=== PATIENT | female | born 1975 | race Two or more races ===

== ENCOUNTER 2023-05-04 19:02 | Emergency (ER) | payer OTHER ==
[~2023-05-04] VITALS: Ht 180.3 cm; Wt 76.2 kg
[~2023-05-04 19:02] MED LIST: MEDROL4 MG PO; PREDNISONE; TRAMADOL HCL-AP1 TAB PO; [UNRECOGNIZED DRUG - OTHER]
[2023-05-04] MEDS ORDERED: ZOLOFT25 MG PO (19:28)
[2023-05-04] MEDS ORDERED: ZESTRIL2.5 MG PO (19:28)
== END 2023-05-04 21:15 | disposition home or self-care (01) ==
LOC: ER 19:02
DX: R51.9 Headache, unspecified (principal)

== ENCOUNTER 2025-01-13 14:09 | Emergency (ER) | payer OTHER ==
[~2025-01-13] VITALS: Ht 149.9 cm; Wt 76.7 kg
[~2025-01-13 14:09] MED LIST changes: +ZESTRIL2.5 MG PO; +ZOLOFT25 MG PO
[2025-01-13] MEDS ORDERED: PEPCID AC20 MG PO (16:38)
[2025-01-13] MEDS ORDERED: MEDROLPACK PO (16:38)
[2025-01-13] MEDS ORDERED: AMOX1TAB5 PO (16:38)
[2025-01-13] MEDS ORDERED: SINGULAIR10 MG PO (16:38)
[2025-01-13] MEDS ORDERED: BUTALB-ACETAMI1 EAC2 PO (16:39)
== END 2025-01-13 17:43 | disposition home or self-care (01) ==
LOC: ER 14:12
DX: R51.9 Headache, unspecified (principal); J02.9 Acute pharyngitis, unspecified; I10 Essential (primary) hypertension; Z88.5 Allergy status to narcotic agent; Z88.6 Allergy status to analgesic agent

== ENCOUNTER 2025-01-19 17:24 | Emergency (ER) | payer OTHER ==
[~2025-01-19] VITALS: Ht 149.9 cm; Wt 76.7 kg
[~2025-01-19 17:24] MED LIST changes: +AMOX1TAB5 PO; +BUTALB-ACETAMI1 EAC2 PO; +MEDROLPACK PO; +PEPCID AC20 MG PO; +SINGULAIR10 MG PO
[2025-01-19] MEDS ORDERED: CETIRIZINE HCL 5 MG/5 ML ML PO ONE (19:00)
[2025-01-19 19:22] LABS: HEMATOCRIT 36.5 % (36.0-45.00); HEMOGLOBIN 12.5 g/dL (12.0-15.00); MEAN CELL VOLUME 82.8 fL (80.00-100.00); MEAN CORPUSCULAR HEMOGLOBIN 28.4 pg (27.00-32.0); MEAN CORPUSCULAR HGB CONC 34.3 g/dl (32.0-36.0); PLATELET COUNT 291 K/uL (150-450); RED CELL DISTRIBUTION WIDTH 13.8 % (11.5-14.5)
[2025-01-19] MEDS ORDERED: FLONASE16 GM NASAL (21:13)
[2025-01-19] MEDS ORDERED: SALINE NASAL SP44 ML NASAL (21:13)
== END 2025-01-19 22:08 ==
LOC: ER 17:26
PROVIDERS: Preventive Medicine Public Health & General Preventive Medicine
DX: J32.9 Chronic sinusitis, unspecified (principal); R53.81 Other malaise; Z20.822 Contact with and (suspected) exposure to COVID-19; Z88.8 Allergy status to other drugs, medicaments and biological substances; I10 Essential (primary) hypertension

== ENCOUNTER 2025-01-24 14:52 | Emergency (ER) | payer OTHER ==
[~2025-01-24] VITALS: Ht 149.9 cm; Wt 72.1 kg
[~2025-01-24 14:52] MED LIST changes: +FLONASE16 GM NASAL; +SALINE NASAL SP44 ML NASAL
[2025-01-24] MEDS ORDERED: VISTARIL50 MG/ML IM (15:56)
== END 2025-01-24 17:31 | disposition home or self-care (01) ==
LOC: ER 14:55
DX: R09.81 Nasal congestion (principal); Z88.8 Allergy status to other drugs, medicaments and biological substances

== ENCOUNTER 2025-04-19 16:15 | Emergency (ER) | payer OTHER ==
[~2025-04-19] VITALS: Ht 149.9 cm; Wt 78.0 kg
[~2025-04-19 16:15] MED LIST changes: +VISTARIL50 MG/ML IM
[2025-04-19] MEDS ORDERED: LISINOPRIL10 MG PO (17:10)
[2025-04-19 18:18] LABS: BASO % 0.7 % (0.1-1.2); EOS # 0.06 (0.04-0.54); EOS % 1.1 % (0.7-7.0); HEMOGLOBIN 11.9 g/dL (11.2-15.7); LYMPH # 2.46 (1.18-3.74); LYMPH % 45.5 % (19.3-53.1); MEAN CORPUSCULAR HEMOGLOBIN 27.3 pg (25.6-32.2); MONO # 0.39 (0.24-0.82); MONO % 7.2 % (4.7-12.5); NEUT # 2.45 (1.56-6.13); NEUT % 45.3 % (34.0-71.1); PLATELET COUNT 244 K/uL (163-369); RED BLOOD COUNT 4.36 M/uL (3.93-5.22); RED CELL DISTRIBUTION WIDTH 12.6 % (11.6-14.4)
[2025-04-19 18:43] LABS: ALBUMIN 3.9 gm/dL (3.4-5.0); BILIRUBIN TOTAL 0.24 mg/dL (0.3-1.2); CALCIUM 8.8 mg/dL (8.5-10.1); CREATININE SERUM 0.65 mg/dL (0.55-1.02); GFR 97.7; GLOBULINA 4.2 G/DL (2.4-3.5); POTASSIUM 4.07 mEq/L (3.5-5.1); TOTAL PROTEIN 8.1 gm/dL (6.4-8.2)
[2025-04-19 18:45] LABS: COVID-19 AG NEGATIVE (NEGATIVE); INFLUENZA A AG NEGATIVE (NEGATIVE); INFLUENZA B AG NEGATIVE (NEGATIVE)
[2025-04-19] MEDS ORDERED: NEO-POLYMYXYIN-10 ML OPHT (19:42)
== END 2025-04-19 20:14 | disposition home or self-care (01) ==
LOC: ER 16:43
PROVIDERS: General Practice
DX: H66.93 Otitis media, unspecified, bilateral (principal); Z20.822 Contact with and (suspected) exposure to COVID-19; Z88.8 Allergy status to other drugs, medicaments and biological substances

== ENCOUNTER 2025-06-14 11:11 | Emergency (ER) | payer OTHER ==
[~2025-06-14] VITALS: Ht 149.9 cm; Wt 81.6 kg
[~2025-06-14 11:11] MED LIST changes: +LISINOPRIL10 MG PO; +NEO-POLYMYXYIN-10 ML OPHT
[2025-06-14] MEDS ORDERED: ORPHENADRINE CITRATE 30 MG/ML AMPUL IM ONE (12:15)
[2025-06-14] MEDS ORDERED: ORPHENADRINE CITRATE 30 MG/ML AMPUL ONE (12:19)
[2025-06-14] MEDS ORDERED: DEXAMETHASONE SODIUM PHOSPHATE 4 MG/ML VIAL ONE (12:20)
[2025-06-14] MEDS ORDERED: ACETAMINOPHEN 500 MG GEL..CAP PO ONE ×2 (12:20→12:30)
[2025-06-14] MEDS ORDERED: DEXAMETHASONE SODIUM PHOSPHATE 4 MG/ML VIAL IM ONE (12:30)
== END 2025-06-14 14:27 | disposition home or self-care (01) ==
LOC: ER 11:11
DX: G43.909 Migraine, unspecified, not intractable, without status migrainosus (principal); M62.838 Other muscle spasm; I10 Essential (primary) hypertension; Z88.5 Allergy status to narcotic agent; Z88.6 Allergy status to analgesic agent